=== PATIENT | female | born 1985 | race Caucasian/White ===

== ENCOUNTER 2017-02-22 13:55 | Emergency (ER) | payer MEDICAID ==
[~2017-02-22] VITALS: Ht 165.1 cm; Wt 73.0 kg
[2017-02-22] MEDS ORDERED: KETOROLAC TROMETHAMINE 60 MG/2 ML VIAL IM ONE (15:00)
[2017-02-22 15:14] VITALS: BP 118/76
[2017-02-22] MEDS ORDERED: PredniSONE 20 MG TABLET PO ONE (15:15)
== END 2017-02-22 15:31 | disposition home or self-care (01) ==
LOC: EMS 13:58
DX: G44.009 Cluster headache syndrome, unspecified, not intractable (principal); G43.909 Migraine, unspecified, not intractable, without status migrainosus
CPT/HCPCS: 96372; 99283; J1885; J7512